=== PATIENT | female | born 1970 | race Caucasian/White ===

== ENCOUNTER 2017-03-08 06:01 | Day surgery (SDC) | payer OTHER ==
[2017-03-07 08:54] VITALS: BMI 33.3
[~2017-03-08] VITALS: Ht 154.9 cm; Wt 79.5 kg
[2017-03-08] VITALS (9 sets, daily range): BP systolic 105–148; BP diastolic 58–83; PULSE 53–72; RESP 16–23; Ht 154.9 cm; Wt 79.5 kg
[~2017-03-08 06:01] MED LIST: LACTATED RINGER'S 1,000 ML IV* SCH
--- NOTE | 2017-03-08 07:38 | HPN ---
Date/Time of Note Date/Time of Note DATE: 03/08/17 TIME: 07:38 Interval H&P Admission Note Pt. seen H&P reviewed: No system changes ILENE NEWMAN MD Mar 08, 2017 07:38
[2017-03-08] MEDS ORDERED: FENTAnyl 50 MCG/ML VIAL ONE (08:14)
[2017-03-08] MEDS ORDERED: LIDOCAINE 2% (SDV) 5 ML INJ ONE (08:16)
[2017-03-08] MEDS ORDERED: SUCCINYLCHOLINE CHLORIDE 100 MG/5 ML SYG IV ONE (08:16)
[2017-03-08] MEDS ORDERED: NEOSTIGMINE 3 MG/3 ML SYRINGE ONE (08:17)
[2017-03-08] MEDS ORDERED: GLYCOPYRROLATE 0.4 MG INJ ONE (08:17)
[2017-03-08] MEDS ORDERED: ROCURONIUM 50 MG INJ ONE (08:17)
[2017-03-08] MEDS ORDERED: PROPOFOL 20 ML ONE (08:17)
[2017-03-08] MEDS ORDERED: FENTAnyl 50 MCG/ML VIAL IV PRN ×2 (09:00)
[2017-03-08] MEDS ORDERED: MEPERIDINE 25 MG INJ IV PRN (09:00)
[2017-03-08] MEDS ORDERED: OXYCODONE/ACETAMINOPHEN (5/325) TAB PO PRN (09:00)
[2017-03-08] MEDS ORDERED: HYDROmorphONE (0.2 MG/ML) 10ML SYG IV PRN ×3 (09:00)
[2017-03-08] MEDS ORDERED: DIPHENHYDRAMINE 50 MG INJ IV PRN (09:00)
[2017-03-08] MEDS ORDERED: ONDANSETRON 4 MG INJ IV PRN (09:00)
[2017-03-08] MEDS ORDERED: METOCLOPRAMIDE 10 MG INJ IV PRN (09:00)
--- NOTE | 2017-03-08 09:26 | PD.PPDC ---
[facility] CASE MANAGER Discharge Instruction Diagnosis Final Diagnosis: abnormal uterine bleeding Condition Patient Condition: Stable Diet Diet: Resume Regular Diet Activity/Restrictions Activity: May Shower Restrictions: No Sexual Activity Nothing in the Vagina No [place] No Tampons, douche Follow-up Follow-up with Physician: 2, Week/Weeks Return to clinic for [facility] DRAWER Instructions: Fever greater than 101 Chills Worsening abdominal pain Excessive Vaginal Bleeding More than 2 pads per hour Unable to tolerate diet ILENE NEWMAN MD Mar 08, 2017 09:26
--- NOTE | 2017-03-09 22:29 | OPR ---
DATE OF OPERATION: 03/08/2017 PREOPERATIVE DIAGNOSIS: Abnormal uterine bleeding. POSTOPERATIVE DIAGNOSIS: Abnormal uterine bleeding. OPERATION PERFORMED: Hysteroscopy and endometrial curettage. ANESTHESIOLOGIST: ____. SURGEON: Lynn Escoto MD. PLANT RELIABILITY ENGINEER: Nahid muñoz [facility]. ESTIMATED BLOOD LOSS: Negligible. PROCEDURE: Under the proper induction of general anesthesia, the patient was placed in the dorsal l ithotomy position. Perineal area and vagina wall was prepped and draped in usual aseptic manner. O n inspection, external genitalia revealed no gross abnormality. On bimanual examination, uterus was felt to be within normal in size. No irregularity noted on the outline, and there is no palpable a dnexal pathology. Weighted speculum was introduced. Anterior lip of the cervix was grasped with a single tooth tenaculum. Cervix was clear and the endocervical curettage was performed, obtaining sc anty tissue, which was sent to pathology. Cavity was sounded, which was approximately 8 cm in depth , and os dilated gradually up to 7, and size 6 hysteroscope was introduced into the uterine cavity i n usual fashion. The uterine cavity was distended with normal saline and both ostia were visualized and the fundus was visualized. There is no abnormal finding noted except the endometrium was thick and prominent. The soft resector was inserted and the uterine curettage was performed in usual fas hion, and the tissue was retrieved in the container and adequate curettage was performed in all dire ctions. The procedure was satisfactory. All the instruments were removed after the picture taken. The cervix was checked for any bleeder, which was intact. The procedure was completed and instrume nt and the sponge count correct. Estimated blood loss was negligible. The patient withstood proced ure well and was sent to recovery in stable condition. Dictated By: LYNN BHATIA/GE Conf#: [id number] DID#: [id number]
== END 2017-03-08 11:05 | disposition home or self-care (01) ==
LOC: SDS 06:01
PROVIDERS: ATTEND Obstetrics & Gynecology
DX: N92.0 Excessive and frequent menstruation with regular cycle (principal)
CPT/HCPCS: 58558; 88305; J2710; J3010; J7999; Z7512; Z7610